=== PATIENT | female | born 1965 ===

== ENCOUNTER 2020-02-25 20:49 | Emergency (ER) | payer SELFPAY ==
[2020-02-25 21:09] VITALS: PULSE 83; RESP 18; TEMP 36.6; O2SAT 98
[2020-02-25 21:33] LABS: Basophils # 0.1 10^3/uL (0.0-0.1); Basophils % 0.6 %; Eosinophils # 0.1 10^3/uL (0.0-0.8); Eosinophils % 0.7 %; Hematocrit 38.3 % (37.0-47.0); Hemoglobin 12.3 g/dL (11.5-15.3); Lymphocytes # 2.3 10^3/uL (0.8-4.8); Lymphocytes % 27.8 %; Mean Corpuscular HGB Conc 32.1 g/dL (30.0-36.0); Mean Corpuscular Hemoglobin 30.5 pg (28.0-34.0); Mean Platelet Volume 9.2 fL (7.4-10.4); Monocytes # 0.7 10^3/uL (0.2-0.9); Monocytes % 8.4 %; Neutrophils # 5.07 10^3/uL (1.8-7.7); Neutrophils % 62.3 %; Nucleated Red Blood Cells % 0 %; Platelet Count 354 10^3/cmm (130-400); Red Blood Count 4.03 10^6/uL (4.1-5.3); Red Cell Distribution Width 12.2 % (12.1-15.1); White Blood Count 8.1 10^3/uL (4.0-10.0)
[2020-02-25 21:50] LABS: Alanine Aminotransferase 18 U/L (0-33); Albumin Level 4.6 g/dL (3.5-5.2); Alkaline Phosphatase 85 IU/L (35-105); Anion Gap 14.7 (5-19); Aspartate Amino Transferase 20 U/L (0-32); Blood Urea Nitrogen 12 mg/dL (6-20); Calcium 9.4 mg/dL (8.5-10.5); Carbon Dioxide 28 mmol/L (22-29); Chloride 101 mmol/L (98-107); Globulin 2.9 g/dL (1.3-4.6); Glomerular Filtration Rate 86.6 mL/min (90-130); Glucose 123 mg/dL (65-115); Lipase 51 U/L (13-60); Osmolality Calculated 287 mOsm/kg (285-295); Potassium 3.7 mmol/L (3.5-5.1); Sodium 140 mmol/L (136-145); Total Bilirubin 0.2 mg/dL (0.15-1.2); Total Protein 7.5 g/dL (6.6-8.7)
[2020-02-25 22:03] LABS: Add Urine Microscopic? NO
[2020-02-25 22:19] LABS: Bilirubin Urine Neg (NEGATIVE); Blood Urine Neg (Negative); Glucose Urine UA Norm (Normal); Ketones Urine Negative (Negative); Leukocyte Esterase Urine Negative (Negative); Nitrate Urine Negative (Negative); Protein Urine Neg (Negative); Urine Appearance Clear (CLEAR); Urine Color Yellow (Yellow); Urobilinogen Urine Norm (Negative); pH Urine 6.5 (5-7)
--- NOTE | 2020-02-25 22:44 | US_ITS ---
WS: [id number] ULTRASOUND ABDOMEN LIMITED CLINICAL INFORMATION: abd pain COMPARISON: None. FINDINGS: Liver Size: Normal. Craniocaudal length: 15.2 cm. Echogenicity: Normal. Surface nodularity: None. Mass (size and location): None. Bile ducts Intrahepatic ducts: Normal. Common bile duct diameter: 0.4 cm. Gallbladder Cholelithiasis Gallstones: Present Gallbladder sludge: None. Gallbladder wall thickening: Mild Pericholecystic fluid: None. Sonographic Justice sign: Absent. Pancreas Normal as visualized. Right kidney: Normal. Hydronephrosis: None. Size: 11.0 cm x 5.2 cm x 4.4 cm. Abdominal aorta and IVC Visualized portions are normal. Ascites: None. US/US gall bladder [id number] IMPRESSION: 1. Cholelithiasis. 2. Mild gallbladder wall thickening. No pericholecystic fluid. 3. Right upper quadrant ultrasound otherwise unremarkable
[2020-02-25 22:45] VITALS: BP 156/89; PULSE 80; RESP 14; O2SAT 98
--- NOTE | 2020-02-25 22:54 | W.ED.ABDPA2 ---
HPI - Abdominal Pain General: Chief Complaint: Abdominal Pain Stated Complaint: abd pain Time Seen by Provider: 02/25/20 22:37 Source: patient Mode of arrival: ambulatory Limitations: no limitations History of Present Illness: HPI narrative: 54-year-old female who states she started having epigastric and right upper quadrant abdominal pain at noon after eating. States pain is sharp in nature. She states that she has had reflux in the past and she has been on antibiotics for 2 weeks due to dental issues. She is no longer on antibiotics this time. She denies any fever or vomiting. Denies any diarrhea. MD elicited complaint: abdominal pain Onset (ago): hour(s) Pain Consistency: constant Location: Epigastric Severity: moderate Quality: sharp Radiation: none Migration to: no migration Exacerbating factors: eating Relieving factors: nothing Associated Symptoms: Denies chills, dysuria and fever(s) Review of Systems Const: Denies: fever(s), chills, body aches or change in appetite Eyes: Denies: blurry vision or eye discomfort ENMT: Denies: throat pain or dental pain Card: Denies: chest pain Resp: Denies: dyspnea GI: Reports: abdominal pain : Denies: dysuria Musc: Denies: neck pain or back pain Skin/Breast: Denies: rash Neuro: Denies: headache(s) Psych: Denies: depression Efren/Lymph: Denies: easy bruising All/Imm: Denies: urticaria [facility] Female Reproductive History: : 3 Physical Exam Const: COMMON NORMALS: no acute distress, patient oriented x3 and healthy appearing HENMT: COMMON NORMALS: normocephalic and atraumatic HEAD & SCALP: normocephalic and atraumatic Eye: COMMON NORMALS: Equal, round and reactive pupils present and EOMs intact bilaterally PUPIL: Yes Equal, round and reactive pupils present Neck/C-Spine: COMMON NORMALS: full ROM and supple Chest: COMMONS NORMALS: normal inspection of the chest and normal palpation of entire chest wall Resp: COMMON NORMALS: normal respiratory effort, No retractions, No use of accessory muscles and clear to auscultation bilaterally AUSCULTATION: clear to auscultation bilaterally Cardio: COMMON NORMALS: regular rate, regular rhythm and No murmurs present (Cardio) RATE: regular rate RHYTHM: regular rhythm GI: COMMON NORMALS: Normal to inspection, nondistended, normoactive bowel sounds present, Soft to palpation and no masses PALPATION: Yes Soft to palpation and Yes Tenderness to palpation present (GI) Details: RUQ Extremity: COMMON NORMALS: normal to inspection and full ROM Neuro: COMMON NORMALS: patient oriented x3, moves all extremities and no focal motor deficits Psych: COMMON NORMALS: mental status grossly normal, Normal thought process present and cooperative THOUGHT PROCESS: Normal thought process present Skin: COMMON NORMALS: no rashes or lesions noted and no wounds GENERAL SKIN EXAM: no rashes or lesions noted Course Vital Signs: Vital signs: Vital Signs Temperature 97.9 F 02/25/20 21:09 Pulse Rate 80 02/25/20 22:45 Respiratory Rate 14 02/25/20 22:45 Blood Pressure 156/89 02/25/20 22:45 Pulse Oximetry 98 02/25/20 22:45 MDM - Abdominal Pain MDM Narrative: Medical decision making narrative: Patient presents with gallstones likely causing her abdominal pain. Patient exam here is benign at discharge and she no longer has any pain. She has no signs of cholecystitis. Patient has no fever or vomiting. Will prescribe her pain meds and she is to follow-up with Dr. Belle outpatient. I informed her she starts develop a fever or worsening pain she is return. She is to do bland diet. She has no signs of acute surgical abdomen. White count here is normal. Lab Data: Labs: Lab Results 02/25/20 02/25/20 02/25/20 Range/Units 21:25 21:25 21:30 WBC 8.1 (4.0-10.0) 10^3/ uL RBC 4.03 L (4.1-5.3) 10^6/u L Hgb 12.3 (11.5-15.3) g/dL Hct 38.3 (37.0-47.0) % MCV 95.0 (81-99) fL MCH 30.5 (28.0-34.0) pg MCHC 32.1 (30.0-36.0) g/dL RDW 12.2 (12.1-15.1) % Plt Count 354 (130-400) 10^3/c mm MPV 9.2 (7.4-10.4) fL Neut % (Auto) 62.3 % Lymph % (Auto) 27.8 % [place] % (Auto) 8.4 % Eos % (Auto) 0.7 % Baso % (Auto) 0.6 % Neut # (Auto) 5.07 (1.8-7.7) 10^3/u L Lymph # (Auto) 2.3 (0.8-4.8) 10^3/u L [place] # (Auto) 0.7 (0.2-0.9) 10^3/u L Eos # (Auto) 0.1 (0.0-0.8) 10^3/u L Baso # (Auto) 0.1 (0.0-0.1) 10^3/u L Nucleated RBC % (a uto) 0 % Nucleated RBCs # 0.0 /100WBC Sodium 140 (136-145) mmol/L Potassium 3.7 (3.5-5.1) mmol/L Chloride 101 (98-107) mmol/L Carbon Dioxide 28 (22-29) mmol/L Anion Gap 14.7 (5-19) BUN 12 (6-20) mg/dL Creatinine 0.7 (0.5-0.9) mg/dL GFR Calculation 86.6 L (90-130) mL/min Glucose 123 H (65-115) mg/dL Calculated Osmolal ity 287 (285-295) mOsm/k g Calcium 9.4 (8.5-10.5) mg/dL Total Bilirubin 0.2 (0.15-1.2) mg/dL AST 20 (0-32) U/L ALT 18 (0-33) U/L Alkaline Phosphata se 85 (35-105) IU/L Total Protein 7.5 (6.6-8.7) g/dL Albumin 4.6 (3.5-5.2) g/dL Globulin 2.9 (1.3-4.6) g/dL Lipase 51 (13-60) U/L Urine Color Yellow (Yellow) Urine Appearance Clear (CLEAR) Urine pH 6.5 (5-7) Ur Specific Gravit y 1.020 (1.005-1.030) Urine Protein Neg (Negative) Urine Glucose (UA) Norm (Normal) Urine Ketones Negative (Negative) Urine Blood Neg (Negative) Urine Nitrate Negative (Negative) Urine Bilirubin Neg (NEGATIVE) Urine Urobilinogen Norm (Negative) mg/dL Ur Leukocyte Margo ase Negative (Negative) Imaging Data ^: US: Radiologist's impression: gallstones with no signs of cholecystitis Discharge Plan Discharge Patient Disposition: Home Clinical Impression: Biliary colic Gallstone Qualifiers: Cholecystitis presence: without cholecystitis Biliary obstruction: without biliary obstruction Qualified Code(s): K80.20 - Calculus of gallbladder without cholecystitis without obstruction Condition: Stable Prescriptions: [place] 5-325 mg tablet 1 tab PO Q6H PRN (Reason: pain) Qty: 14 RF: 0 ondansetron 4 mg tablet,disintegrating 4 mg PO Q6H PRN (Reason: nausea and vomiting) Qty: 14 RF: 0 Discharge Orders: Discharge Order (Routine); Ordered 02/25/20 Ordered By: Carrie Degroot Referrals: Brad Belle MD [Physician] - 1-3 days Rafia Robertson DO [Primary Care Provider] - Discharge Diet: Advance as tolerated Discharge Activity: Resume usual activity Patient Instructions: Biliary Colic (ED), Abdominal Pain (ED) Coding Level of Care Code ED [employer] Specialist for Chg Fwd Exam Comprehensive
[2020-02-25] MEDS: lidocaine 2% viscous 15 ML, aluminum-mag hydrox-simethicon 30 ML, sucralfate oral liq 1 GM PO (22:57)
[2020-02-26 00:04] VITALS: BP 142/85; PULSE 74; RESP 16; O2SAT 98
--- NOTE | 2020-02-26 11:52 | PC.SOCIAL ---
Referral received from Dr Degroot for Appt with Dr Belle/ surgery for gallstones. Attempted to reach patient unable to do so left message with this nurse contact information. Tried to reach spouse no answer did not leave message. Tried reaching last contact Mother but no answer and no option to leave message. CM to follow up at later date.
--- NOTE | 2020-03-01 13:15 | PC.SOCIAL ---
Confirmed appt with Dr Belle for 03/16/2020 at 8:30am and patient plans on attending.
--- NOTE | 2020-03-05 10:07 | DCPLANNER ---
senior clinical study manager attempted to make contact with patient, unable to make contact with patient at this time, left message with contact information.
== END 2020-02-26 00:05 | disposition home or self-care (01) ==
PROVIDERS: Emergency Provider Emergency Medicine; PCP Family Medicine
DX: K80.20 Calculus of gallbladder without cholecystitis without obstruction (principal)
CPT/HCPCS: 12345; 36415; 76705; 80053; 81003; 83690; 85025; 99283